=== PATIENT | female | born 2000 | race Caucasian/White ===

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

== ENCOUNTER 2018-08-31 10:51 | Emergency (ER) | payer MEDICAID ==
[~2018-08-31] VITALS: Ht 144.8 cm; Wt 53.5 kg
[2018-08-31 12:10] LABS: BASOPHILS # (AUTO) 0.07 x10^3/uL (0-0.3); BASOPHILS % (AUTO) 1 % (0-1); EOSINOPHILS # (AUTO) 0.09 x10^3/uL (0-0.8); EOSINOPHILS % (AUTO) 1 % (1-7); LYMPHOCYTES # (AUTO) 1.47 x10^3/uL (1-6.1); LYMPHOCYTES % (AUTO) 17 % (22-44); MD NO; MEAN CORPUSCULAR HEMOGLOBIN 24.8 pg (27.0-34.8); MEAN CORPUSCULAR HGB CONC 32.3 g/dL (32.4-35.8); MEAN CORPUSCULAR VOLUME 76.6 fL (80-100); MEAN PLATELET VOLUME 7.7 fL (7.4-10.4); MONOCYTES # (AUTO) 0.71 x10^3/uL (0-1.4); MONOCYTES % (AUTO) 8 % (2-9); NEUTROPHILS # (AUTO) 6.43 x10^3/uL (1.8-8.0); NEUTROPHILS % (AUTO) 73 % (42-75); PLATELET COUNT 379 x10^3/uL (130-400); RED BLOOD COUNT 4.24 x10^6/uL (3.82-5.3); RED CELL DISTRIBUTION WIDTH 15.8 % (9.6-15.2)
[2018-08-31] MEDS ORDERED: CITA20TA6 PO (12:49)
[2018-08-31 13:29] LABS: CULTURE INDICATED? YES; MICROSCOPIC INDICATED
[2018-08-31 13:51] VITALS: BP 105/64
== END 2018-08-31 13:53 | disposition home or self-care (01) ==
LOC: ED 13:46
DX: O23.12 Infections of bladder in pregnancy, second trimester (principal); R10.2 Pelvic and perineal pain; F32.9 Major depressive disorder, single episode, unspecified; Z3A.18 18 weeks gestation of pregnancy
CPT/HCPCS: 36415; 76801; 81001; 84702; 85025; 87086; 99284

== ENCOUNTER 2018-10-12 20:29 | Outpatient (CLI) | payer MEDICAID ==
[~2018-10-12] VITALS: Ht 144.8 cm; Wt 56.4 kg
[~2018-10-12 20:29] MED LIST changes: +CITA20TA6 PO
[2018-10-12 21:21] LABS: CLUE CELLS NONE SEEN (NONE SEEN); WET PREP WBCS FEW (FEW)
[2018-10-12 21:24] LABS: MICROSCOPIC INDICATED
[2018-10-12] MEDS ORDERED: PREN-59 PO (21:56)
== END 2018-10-12 22:01 | disposition home or self-care (01) ==
LOC: LDOP 20:29
PROVIDERS: ATTEND Obstetrics & Gynecology
DX: O26.892 Other specified pregnancy related conditions, second trimester (principal); R10.2 Pelvic and perineal pain; Z3A.24 24 weeks gestation of pregnancy
CPT/HCPCS: 36415; 59025; 81001; 82731; 87086; 87210; 87808; 99201; G0463

== ENCOUNTER 2018-11-19 16:51 | Outpatient (CLI) | payer MEDICAID ==
[~2018-11-19] VITALS: Ht 144.8 cm; Wt 56.8 kg
[~2018-11-19 16:51] MED LIST changes: +PREN-59 PO
[2018-11-19 17:10] VITALS: BP 105/58
[2018-11-19 18:12] LABS: BASOPHILS # (AUTO) 0.03 x10^3/uL (0-0.3); BASOPHILS % (AUTO) 1 % (0-1); EOSINOPHILS # (AUTO) 0.08 x10^3/uL (0-0.8); EOSINOPHILS % (AUTO) 1 % (1-7); LYMPHOCYTES # (AUTO) 1.07 x10^3/uL (1-6.1); LYMPHOCYTES % (AUTO) 14 % (22-44); MD NO; MEAN CORPUSCULAR HEMOGLOBIN 23.2 pg (27.0-34.8); MEAN CORPUSCULAR HGB CONC 32.4 g/dL (32.4-35.8); MEAN CORPUSCULAR VOLUME 71.6 fL (80-100); MEAN PLATELET VOLUME 7.7 fL (7.4-10.4); MONOCYTES # (AUTO) 0.61 x10^3/uL (0-1.4); MONOCYTES % (AUTO) 8 % (2-9); NEUTROPHILS # (AUTO) 5.76 x10^3/uL (1.8-8.0); NEUTROPHILS % (AUTO) 76 % (42-75); PLATELET COUNT 312 x10^3/uL (130-400); RED BLOOD COUNT 3.54 x10^6/uL (3.82-5.3); RED CELL DISTRIBUTION WIDTH 18.3 % (9.6-15.2)
[2018-11-19 18:15] LABS: ALANINE AMINOTRANSFERASE 12 U/L (12-78); ALBUMIN 2.5 g/dL (3.4-5.0); ANION GAP 8 mmol/L (5-15); CALCIUM 7.7 mg/dL (8.5-10.1); CHLORIDE 110 mmol/L (98-107)
[2018-11-19 18:24] LABS: ALKALINE PHOSPHATASE 92 U/L (45-117); BILIRUBIN,TOTAL 0.4 mg/dL (0.2-1.0); TOTAL PROTEIN 6.3 g/dL (6.4-8.2)
[2018-11-19 20:32] LABS: % IRON SATURATION 5 % (20-55); IRON LEVEL 26 mcg/dL (50-170); TOTAL IRON BINDING CAPACITY 520 mcg/dL (250-450)
[2018-11-19 20:47] LABS: FOLATE LEVEL > 20.0 ng/mL (3.1-17.5)
== END 2018-11-19 20:30 | disposition home or self-care (01) ==
LOC: LDOP 16:51
PROVIDERS: ATTEND Obstetrics & Gynecology
DX: O26.893 Other specified pregnancy related conditions, third trimester (principal); R42 Dizziness and giddiness; G43.909 Migraine, unspecified, not intractable, without status migrainosus; O99.013 Anemia complicating pregnancy, third trimester; Z3A.29 29 weeks gestation of pregnancy
CPT/HCPCS: 36415; 59025; 80053; 82728; 82746; 83540; 83550; 84443; 85025; 99211; G0463

== ENCOUNTER 2018-12-06 17:05 | Outpatient (CLI) | payer MEDICAID ==
[~2018-12-06] VITALS: Ht 144.8 cm; Wt 61.8 kg
[2018-12-06 17:30] VITALS: BP 104/55
== END 2018-12-06 21:30 | disposition home or self-care (01) ==
LOC: LDOP 17:05
PROVIDERS: ATTEND Obstetrics & Gynecology
DX: O9A.313 Physical abuse complicating pregnancy, third trimester (principal); R10.9 Unspecified abdominal pain; Z3A.32 32 weeks gestation of pregnancy
CPT/HCPCS: 36415; 59025; 85460; 86850; 86870; 86900; 99211; G0463

== ENCOUNTER 2019-01-25 06:53 | Inpatient (IN) | payer MEDICAID ==
[~2019-01-25] VITALS: Ht 144.8 cm; Wt 65.0 kg
[2019-01-25] MEDS ORDERED: LACTATED RINGERS 1,000 ML IV SCH (06:54)
[2019-01-25] MEDS ORDERED: METOCLOPRAMIDE 5 MG/ML, 2ML IV ONE (07:00)
[2019-01-25] MEDS ORDERED: LACTATED RINGERS 1,000 ML IVBOLUS ONE (07:00)
[2019-01-25] MEDS ORDERED: SODIUM CITRATE/CITRIC ACID 15 ML UDC PO ONE (07:00)
[2019-01-25 07:27] VITALS: BP 104/56
[2019-01-25 07:31] LABS: BASOPHILS # (AUTO) 0.03 x10^3/uL (0-0.3); BASOPHILS % (AUTO) 1 % (0-1); EOSINOPHILS # (AUTO) 0.03 x10^3/uL (0-0.8); EOSINOPHILS % (AUTO) 1 % (1-7); LYMPHOCYTES # (AUTO) 1.33 x10^3/uL (1-6.1); LYMPHOCYTES % (AUTO) 21 % (22-44); MD NO; MEAN CORPUSCULAR HEMOGLOBIN 21.3 pg (27.0-34.8); MEAN CORPUSCULAR HGB CONC 30.9 g/dL (32.4-35.8); MEAN PLATELET VOLUME 7.6 fL (7.4-10.4); MONOCYTES # (AUTO) 0.54 x10^3/uL (0-1.4); MONOCYTES % (AUTO) 9 % (2-9); NEUTROPHILS % (AUTO) 70 % (42-75); PLATELET COUNT 331 x10^3/uL (130-400); RED BLOOD COUNT 3.87 x10^6/uL (3.82-5.3); RED CELL DISTRIBUTION WIDTH 21.9 % (9.6-15.2)
[2019-01-25 07:42] LABS: AMPHETAMINE SCREEN, URINE Negative (Negative); BARBITURATE SCREEN, URINE Negative (Negative); BENZODIAZEPINE SCREEN, URINE Negative (Negative); CANNABINOID SCREEN, URINE Negative (Negative); COCAINE SCREEN, URINE Negative (Negative); METHADONE SCREEN, URINE Negative (Negative); OPIATE SCREEN, URINE Negative (Negative)
[2019-01-25] MEDS ORDERED: OXYTOCIN 10 UNITS/ML, 1ML ONE (07:56)
[2019-01-25] MEDS ORDERED: HYDROmorphone 2 MG/ML, 1ML ONE (07:56)
[2019-01-25] MEDS ORDERED: ONDANSETRON 2MG/ML, 2ML ONE (07:56)
[2019-01-25] MEDS ORDERED: CEFAZOLIN 1,000 MG ONE (07:56)
[2019-01-25] MEDS ORDERED: FENTANYL PF 100 MCG/2ML ONE (07:56)
[2019-01-25] MEDS ORDERED: SODIUM CITRATE/CITRIC ACID 15 ML UDC ONE (08:03)
[2019-01-25] MEDS ORDERED: OXYTOCIN 30U/ 0.9% NaCL 500ML 500 ML ONE (08:03)
[2019-01-25] MEDS ORDERED: METOCLOPRAMIDE 5 MG/ML, 2ML ONE (08:03)
[2019-01-25] MEDS: PRENATAL VIT/IRON/FA 1 EACH TABLET PO SCH (09:00)
[2019-01-25] MEDS: LACTATED RINGERS 1,000 ML IV SCH ×4 (09:00→19:00)
[2019-01-25] MEDS ORDERED: morphine SULFATE 10 MG/ML, 1ML IVPush PRN (09:00)
[2019-01-25] MEDS ORDERED: ACETAMINOPHEN 325 MG TABLET PO PRN (09:00)
[2019-01-25] MEDS ORDERED: IBUPROFEN 600 MG TABLET PO PRN (09:00)
[2019-01-25] MEDS ORDERED: MISOPROSTOL 200 MCG TABLET PR PRN (09:00)
[2019-01-25] MEDS ORDERED: ONDANSETRON 2MG/ML, 2ML IV PRN (09:00)
[2019-01-25] MEDS ORDERED: RHOGAM FROM BLOOD BANK 1 NOTE EA IM/IV ONE (09:00)
[2019-01-25] MEDS ORDERED: EPHEDRINE 50 MG/ML, 1ML ONE (09:24)
[2019-01-25] MEDS: OXYTOCIN 30U/ 0.9% NaCL 500ML 500 ML IV SCH ×2 (11:01→19:00)
[2019-01-25 11:35] VITALS: BP 99/56
[2019-01-25] MEDS: KETOROLAC 30 MG/1 ML IV SCH ×2 (12:46→18:31)
[2019-01-25 16:00] VITALS: BP 104/66
[2019-01-25] MEDS: OXYcodone/APAP 5/325MG TABLET PO PRN ×2 (17:44→22:24)
[2019-01-25 17:51] LABS: BASOPHILS # (AUTO) 0.01 x10^3/uL (0-0.3); BASOPHILS % (AUTO) 0 % (0-1); EOSINOPHILS # (AUTO) 0.13 x10^3/uL (0-0.8); EOSINOPHILS % (AUTO) 1 % (1-7); LYMPHOCYTES % (AUTO) 12 % (22-44); MD NO; MEAN CORPUSCULAR HEMOGLOBIN 21.7 pg (27.0-34.8); MEAN CORPUSCULAR HGB CONC 31.6 g/dL (32.4-35.8); MEAN CORPUSCULAR VOLUME 68.8 fL (80-100); MEAN PLATELET VOLUME 7.6 fL (7.4-10.4); MONOCYTES # (AUTO) 0.64 x10^3/uL (0-1.4); MONOCYTES % (AUTO) 6 % (2-9); NEUTROPHILS # (AUTO) 8.06 x10^3/uL (1.8-8.0); NEUTROPHILS % (AUTO) 80 % (42-75); PLATELET COUNT 263 x10^3/uL (130-400); RED BLOOD COUNT 3.46 x10^6/uL (3.82-5.3); RED CELL DISTRIBUTION WIDTH 21.5 % (9.6-15.2)
[2019-01-25 19:50] VITALS: BP 104/59
[2019-01-25] MEDS: DOCUSATE 100 MG CAPSULE PO PRN (22:24)
[2019-01-26] MEDS: KETOROLAC 30 MG/1 ML IV SCH ×4 (00:09→18:15)
[2019-01-26 00:10] VITALS: BP 102/67
[2019-01-26] MEDS: OXYcodone/APAP 5/325MG TABLET PO PRN ×3 (02:43→20:16)
[2019-01-26 04:45] VITALS: BP 106/68
[2019-01-26] MEDS: LACTATED RINGERS 1,000 ML IV SCH ×2 (05:00→15:00)
[2019-01-26] MEDS: OXYTOCIN 30U/ 0.9% NaCL 500ML 500 ML IV SCH ×2 (05:00→15:00)
[2019-01-26 07:00] VITALS: BP 105/67
[2019-01-26] MEDS: PRENATAL VIT/IRON/FA 1 EACH TABLET PO SCH (10:40)
[2019-01-26] MEDS: DOCUSATE 100 MG CAPSULE PO PRN ×2 (10:40→20:16)
[2019-01-26] MEDS: FERROUS SULFATE 325 MG TABLET PO SCH (12:17)
[2019-01-26] MEDS: FLUOXETINE HCL 20 MG CAPSULE PO SCH (12:18)
[2019-01-26] MEDS ORDERED: DIPH,PERTUSS(ACELL),TET VAC/PF NC IM-VACC ONE (19:00)
[2019-01-26 20:00] VITALS: BP 108/71
[2019-01-27] MEDS: KETOROLAC 30 MG/1 ML IV SCH ×2 (00:28→05:56)
[2019-01-27] MEDS: OXYcodone/APAP 5/325MG TABLET PO PRN ×2 (00:28→12:42)
[2019-01-27] MEDS: LACTATED RINGERS 1,000 ML IV SCH (01:00)
[2019-01-27] MEDS: OXYTOCIN 30U/ 0.9% NaCL 500ML 500 ML IV SCH (01:00)
[2019-01-27] MEDS ORDERED: MEASLES,MUMPS&RUBELLA VACC/PF 0.5 ML SQ-VACC ONE (06:00)
[2019-01-27 07:50] VITALS: BP 99/61
[2019-01-27] MEDS: FERROUS SULFATE 325 MG TABLET PO SCH (09:15)
[2019-01-27] MEDS: PRENATAL VIT/IRON/FA 1 EACH TABLET PO SCH (09:15)
[2019-01-27] MEDS: DOCUSATE 100 MG CAPSULE PO PRN (09:15)
[2019-01-27] MEDS: FLUOXETINE HCL 20 MG CAPSULE PO SCH (09:16)
[2019-01-27] MEDS ORDERED: OXYC-302 PO (12:06)
[2019-01-27] MEDS ORDERED: IBUP-1222 PO (12:07)
[2019-01-27] MEDS ORDERED: FLUO20CA19 PO (12:09)
[2019-01-27] MEDS ORDERED: FERR325T23 PO (12:14)
== END 2019-01-27 13:35 | disposition home or self-care (01) | DRG 788 ==
LOC: LDIP 06:53 → 2NW 11:21
PROVIDERS: ADMIT Obstetrics & Gynecology; ATTEND Obstetrics & Gynecology
PROC: 10D00Z1 Extraction of Products of Conception, Low, Open Approach (ICD-10-PCS; principal; 2019-01-25)
DX: O99.02 Anemia complicating childbirth (principal); O34.211 Maternal care for low transverse scar from previous cesarean delivery; D64.9 Anemia, unspecified; O99.344 Other mental disorders complicating childbirth; F32.9 Major depressive disorder, single episode, unspecified; Z37.0 Single live birth; Z3A.39 39 weeks gestation of pregnancy; Z91.410 Personal history of adult physical and sexual abuse
CPT/HCPCS: 36415; 80307; 82803; 85025; 86850; 86870; 86900; 86922; 86923; 90715; G0378; J0690; J1170; J1885; J2405; J3010; J2590; J7120

== ENCOUNTER 2019-08-24 20:48 | Emergency (ER) | payer SELFPAY ==
[~2019-08-24] VITALS: Ht 144.8 cm; Wt 51.4 kg
[~2019-08-24 20:48] MED LIST changes: +FERR325T23 PO; +FLUO20CA19 PO
--- NOTE | 2019-08-24 21:03 | NUR ---
19Y F THAT COMES IN W/ C/O ANXIETY. PT STS "MY BODY GETS ALL TINGLY, AND MY HEART IS BEATING TOO FAST FOR ME TO SLEEP." PT REPORTS NO EATING OR SLEEPING X2DAYS. PT WAS TAKING MEDICATIONS FOR BIPOLAR AND SHE FELT LIKE SHE WAS DOING WELL AND DIDN'T NEED THEM ANY MORE WELL IRON SUPPLEMENTS. PT CONNECTED TO MONITORING VSS, CALL LIGHT WITHIN REACH.
--- NOTE | 2019-08-24 21:03 | NUR ---
MD AT BEDSIDE TO ASSESS PT
[2019-08-24 21:06] VITALS: BP 130/86
[2019-08-24] MEDS ORDERED: LORazepam 1MG TABLET ONE (21:19)
--- NOTE | 2019-08-24 21:22 | NUR ---
PT MEDICATED PER MAR. FRIEND REMAINS AT BEDSIDE.
[2019-08-24] MEDS ORDERED: LORazepam 1MG TABLET PO ONE (21:30)
== END 2019-08-24 21:44 | disposition home or self-care (01) ==
LOC: ED 21:35
DX: F41.1 Generalized anxiety disorder (principal); F31.9 Bipolar disorder, unspecified; D64.9 Anemia, unspecified
CPT/HCPCS: 99284

== ENCOUNTER 2019-09-01 18:11 | Inpatient (IN) | payer MEDICAID, OTHER ==
[~2019-09-01] VITALS: Ht 144.8 cm; Wt 54.1 kg
[2019-09-01] MEDS ORDERED: SODIUM CHLORIDE 0.9% 1,000 ML IV ONE ×2 (18:24→20:46)
[2019-09-01] MEDS ORDERED: SODIUM CHLORIDE FLUSH 10ML SYR IVF ONE (18:30)
[2019-09-01] MEDS ORDERED: SODIUM CHLORIDE 0.9% 1,000ML IVBOLUS ONE ×2 (18:30→19:00)
--- NOTE | 2019-09-01 18:33 | NUR ---
PT PRESENTS TO ED AFTER FOUND UNCONSCIOUS BY ROOMMATE, PER [facility] PT BECAME RESPONSIVE AFTER 1.5 NARCAN. PT PUPILS REMAIN PINPOINT. PT DENIES ANY MEDICATION/DRUG USE. UNABLE TO RECALL TODAY OR YESTERDAY. ASKED MULTIPLE TIMES IF PT FEELS SAFE AT HOME, PT NOT FORTHCOMING. DISCUSSION WITH ERMD REGARDING PT'S SYMPTOMS. SW TO BE NOTIFIED.
[2019-09-01 18:54] LABS: MEAN CORPUSCULAR HEMOGLOBIN 25.3 pg (27.0-34.8); MEAN CORPUSCULAR HGB CONC 31.4 g/dL (32.4-35.8); MEAN CORPUSCULAR VOLUME 80.4 fL (80-100); MEAN PLATELET VOLUME 8.1 fL (7.4-10.4); PLATELET COUNT 336 x10^3/uL (130-400); RED BLOOD COUNT 4.58 x10^6/uL (3.82-5.3); RED CELL DISTRIBUTION WIDTH 18.6 % (9.6-15.2)
[2019-09-01 18:56] LABS: ALANINE AMINOTRANSFERASE 36 U/L (12-78); ALBUMIN 3.6 g/dL (3.4-5.0); ANION GAP 9 mmol/L (5-15); CHLORIDE 106 mmol/L (98-107)
--- NOTE | 2019-09-01 18:56 | NUR ---
DISCUSSION WITH PRASANNA MELTON REGARDING PT'S HX AND CURRENT VISIT. REPORT TO GIOVANNY HUGHES.
[2019-09-01 18:59] LABS: MD YES
[2019-09-01 19:01] LABS: ALKALINE PHOSPHATASE 90 U/L (45-117); BILIRUBIN,TOTAL 0.3 mg/dL (0.2-1.0); CREATININE 1.14 mg/dL (0.55-1.02); TOTAL PROTEIN 7.5 g/dL (6.4-8.2)
[2019-09-01 19:10] LABS: SALICYLATE LEVEL < 1.7 mg/dL (2.8-20.0)
[2019-09-01 19:32] LABS: BAND#(MANUAL) 2.95 x10^3/uL; BANDS%(MANUAL) 13 % (0-7); LYMPH#(MANUAL) 0.68 x10^3/uL (1-3.4); LYMPHS% (MANUAL) 3 % (22-44); MONOS#(MANUAL) 0.91 x10^3/uL (0.3-2.7); MONOS% (MANUAL) 4 % (2-9); SEG#(MANUAL) 18.16 x10^3/uL (1.8-6.8); SEGS% (MANUAL) 80 % (42-75)
[2019-09-01 19:34] LABS: HYPOCHROMIA 1+; POLYCHROMASIA 1+
[2019-09-01 19:35] LABS: ANISOCYTOSIS 1+
[2019-09-01 19:36] LABS: <PLATELET ESTIMATE> ADEQUATE; <PLT MORPHOLOGY> NORMAL PLT MORPH
[2019-09-01 19:50] LABS: ACETONE, SERUM Negative (Negative)
[2019-09-01] MEDS ORDERED: CEFTRIAXONE PMX 1GM/50ML 50 ML IVPB ONE (20:00)
[2019-09-01 20:17] LABS: AMPHETAMINE SCREEN, URINE Negative (Negative); BARBITURATE SCREEN, URINE Negative (Negative); BENZODIAZEPINE SCREEN, URINE Negative (Negative); CANNABINOID SCREEN, URINE Negative (Negative); COCAINE SCREEN, URINE Positive (Negative); METHADONE SCREEN, URINE Negative (Negative); OPIATE SCREEN, URINE Negative (Negative)
[2019-09-01 20:21] LABS: MICROSCOPIC INDICATED
[2019-09-01 20:23] LABS: CULTURE INDICATED? YES
[2019-09-01] MEDS ORDERED: CEFTRIAXONE PMX 1GM/50ML 50 ML ONE (20:33)
[2019-09-01] MEDS ORDERED: SODIUM CHLORIDE FLUSH 10ML SYR IVF PRN (21:00)
[2019-09-01 22:03] VITALS: BP 124/75
[2019-09-01] MEDS ORDERED: ACETAMINOPHEN 325 MG TABLET PO PRN (23:00)
[2019-09-01] MEDS ORDERED: LIDODERM 5% PATCH TD PRN (23:00)
[2019-09-01] MEDS ORDERED: DIPHENHYDRAMINE 25 MG CAPSULE PO PRN (23:00)
[2019-09-01] MEDS ORDERED: DOCUSATE 100 MG CAPSULE PO PRN (23:00)
[2019-09-01] MEDS ORDERED: CEFTRIAXONE PMX 1GM/50ML 50 ML IV ONE (23:00)
[2019-09-01] MEDS ORDERED: ONDANSETRON ODT 4 MG PO PRN (23:00)
[2019-09-02] MEDS: SODIUM CHLORIDE 0.9% 1,000 ML IV SCH ×3 (00:27→17:09)
[2019-09-02 00:34] VITALS: BP 108/75
[2019-09-02 01:00] LABS: HCG UR SG 1.023 (1.003-1.030)
[2019-09-02 06:12] LABS: CHLORIDE 110 mmol/L (98-107)
[2019-09-02 06:25] LABS: ANION GAP 7 mmol/L (5-15); CALCIUM 7.7 mg/dL (8.5-10.1); CREATININE 0.77 mg/dL (0.55-1.02)
[2019-09-02 06:30] LABS: BASOPHILS # (AUTO) 0.03 x10^3/uL (0-0.1); BASOPHILS % (AUTO) 0 % (0-1); EOSINOPHILS # (AUTO) 0.06 x10^3/uL (0-0.4); EOSINOPHILS % (AUTO) 1 % (1-7); LYMPHOCYTES % (AUTO) 21 % (22-44); MD NO; MEAN CORPUSCULAR HEMOGLOBIN 25.2 pg (27.0-34.8); MEAN CORPUSCULAR HGB CONC 31.5 g/dL (32.4-35.8); MEAN CORPUSCULAR VOLUME 79.9 fL (80-100); MEAN PLATELET VOLUME 8.4 fL (7.4-10.4); MONOCYTES # (AUTO) 0.63 x10^3/uL (0.2-0.8); MONOCYTES % (AUTO) 8 % (2-9); NEUTROPHILS # (AUTO) 5.79 x10^3/uL (1.8-6.8); NEUTROPHILS % (AUTO) 71 % (42-75); PLATELET COUNT 263 x10^3/uL (130-400); RED BLOOD COUNT 3.97 x10^6/uL (3.82-5.3); RED CELL DISTRIBUTION WIDTH 18.9 % (9.6-15.2)
[2019-09-02] MEDS: INSULIN LISPRO 100 UNITS/ML, PEN SQ-INSULIN SCH ×4 (07:00→21:00)
[2019-09-02 09:03] VITALS: BP 109/74
[2019-09-02 14:19] VITALS: BP 122/81
[2019-09-02] MEDS ORDERED: CEFTRIAXONE PMX 2GM/50ML 50 ML IV SCH (21:00)
== END 2019-09-03 03:20 | disposition left against medical advice (07) | DRG 871 ==
LOC: ED 20:40 → EDIP 20:46 → ED 20:56 → 4EST 22:07
PROVIDERS: ADMIT Internal Medicine; ATTEND Family Medicine
DX: A41.9 Sepsis, unspecified organism (principal); G92 Toxic encephalopathy; N17.9 Acute kidney failure, unspecified; F31.9 Bipolar disorder, unspecified; F41.1 Generalized anxiety disorder; N30.90 Cystitis, unspecified without hematuria; R65.20 Severe sepsis without septic shock; Z59.0 Homelessness; R73.9 Hyperglycemia, unspecified; T40.4X1A Poisoning by other synthetic narcotics, accidental (unintentional), initial encounter; Y92.89 Other specified places as the place of occurrence of the external cause
CPT/HCPCS: 36415; 70450; 71045; 80048; 80053; 80307; 81001; 81025; 82010; 82800; 82962; 83036; 83605; 84145; 84703; 85025; 87040; 87086; 87147; 87491; 87591; 93005; 96360; 96361; 99285; G0378; J0696; J7030